=== PATIENT | female | born 1990 | race Caucasian/White ===

== ENCOUNTER 2016-11-24 21:32 | Emergency (ER) | payer OTHER ==
[~2016-11-24] VITALS: Ht 157.5 cm; Wt 75.9 kg
[~2016-11-24 21:32] MED LIST: BIRTH CONTROL PILL; CEPHALEXIN500 M1 PO; NO HOME MEDICATIONS
[2016-11-24 21:34] VITALS: BP 160/96; PULSE 90; TEMP 98.2
[2016-11-24] MEDS ORDERED: FERROUS SULFATE65 MG PO (21:36)
[2016-11-24] MEDS ORDERED: PRENATAL PO (22:10)
== END 2016-11-24 23:00 | disposition other institution (70) ==
LOC: COL.ER 21:32
DX: Z02.89 Encounter for other administrative examinations (principal)

== ENCOUNTER 2016-11-24 21:53 | Outpatient (CLI) | payer OTHER ==
[~2016-11-24] VITALS: Ht 157.5 cm; Wt 76.4 kg
[~2016-11-24 21:53] MED LIST changes: +FERROUS SULFATE65 MG PO
[2016-11-24 22:02] VITALS: BP 134/85; PULSE 100; TEMP 98.3
[2016-11-24] MEDS ORDERED: PRENATAL PO (22:10)
[2016-11-24 22:30] VITALS: BP 142/77; PULSE 78; TEMP 98.3
[2016-11-24 22:53] LABS: BASO % 0.3 % (0.0-2.0); GRAN % 67.7 % (42.2-75.2); LYMPH # 1.8 (1.2-3.4); LYMPH % 23.8 % (20.0-51.0); MEAN CELL VOLUME 85 fl (80.0-100.0); MEAN CORPUSCULAR HGB CONC 34 g/dl (33.0-37.0); MEAN PLATELET VOLUME 11.1 fl (7.4-10.4); MONO # 0.6 (0.1-0.6); MONO % 7.8 % (1.7-9.3); PLATELET COUNT 175 K/mm3 (130-400); RED BLOOD COUNT 3.82 M/mm3 (4.10-5.30); REDCELL DISTRIBUTION WIDTH-CV 12.8 % (11.5-14.5); WHITE BLOOD COUNT 7.4 K/mm3 (4.8-10.8)
[2016-11-24 22:54] LABS: HEMATOCRIT 32.3 % (37.0-47.0); HEMOGLOBIN 11.1 g/dl (12.5-16.0); MEAN CORPUSCULAR HEMOGLOBIN 29 pg (27.0-31.0)
[2016-11-24 22:57] LABS: PH 6 (5-8); SQUAMOUS EPITHELIAL 0-2 /hpf; URINE APPEARANCE Clear; URINE BACTERIA None Seen /hpf; URINE BILIRUBIN Negative (NEGATIVE); URINE BLOOD Negative (NEGATIVE); URINE COLOR Yellow; URINE GLUCOSE Negative (NEGATIVE); URINE KETONE Trace (NEGATIVE); URINE RBC 0-2 /hpf; URINE UROBILINOGEN Negative (NEGATIVE)
[2016-11-24 23:00] VITALS: BP 140/73; BP 146/84; PULSE 79; PULSE 82
[2016-11-24 23:04] LABS: ADJUSTED CALCIUM 8.7 mg/dL (8.4-10.2); BILIRUBIN,TOTAL 0.6 mg/dL (0.0-1.0); CALCIUM 7.9 mg/dL (8.4-10.2); CREATININE, serum 0.6 mg/dL (0.52-1.25); POTASSIUM 3.8 mmol/L (3.4-5.0); TOTAL PROTEIN 6.2 gm/dL (6.4-8.2)
[2016-11-24 23:15] VITALS: BP 146/84; PULSE 82
== END 2016-11-24 23:25 | disposition home or self-care (01) ==
LOC: LDRO 21:53
PROVIDERS: Obstetrics & Gynecology
DX: O12.03 Gestational edema, third trimester (principal); O26.893 Other specified pregnancy related conditions, third trimester; R20.0 Anesthesia of skin; Z87.891 Personal history of nicotine dependence; Z3A.38 38 weeks gestation of pregnancy

== ENCOUNTER 2016-11-26 11:24 | Inpatient (IN) | payer OTHER ==
[~2016-11-26] VITALS: Ht 157.5 cm; Wt 78.6 kg
[~2016-11-26 11:24] MED LIST changes: +PRENATAL PO
[2016-12-06] VITALS (24 sets, daily range): BP systolic 117–185; BP diastolic 76–104; PULSE 62–92; TEMP 97.7–98.8
[2016-12-06] MEDS ORDERED: ZANTAC 150MG T150 MG PO (11:13)
[2016-12-06 11:19] LABS: BASO % 0.3 % (0.0-2.0); EOS % 0.1 % (0-4.0); GRAN # 5.1 (1.4-6.5); GRAN % 72.3 % (42.2-75.2); HEMOGLOBIN 12.2 g/dl (12.5-16.0); LYMPH # 1.5 (1.2-3.4); LYMPH % 20.8 % (20.0-51.0); MEAN CELL VOLUME 83 fl (80.0-100.0); MEAN CORPUSCULAR HEMOGLOBIN 29 pg (27.0-31.0); MEAN CORPUSCULAR HGB CONC 34 g/dl (33.0-37.0); MEAN PLATELET VOLUME 12.2 fl (7.4-10.4); MONO # 0.4 (0.1-0.6); MONO % 5.9 % (1.7-9.3); PLATELET COUNT 166 K/mm3 (130-400); RED BLOOD COUNT 4.28 M/mm3 (4.10-5.30)
[2016-12-06 11:23] LABS: HEMATOCRIT 35.6 % (37.0-47.0)
[2016-12-07 00:55] VITALS: BP 141/78; PULSE 65; TEMP 97.8
[2016-12-07 05:00] VITALS: BP 152/74; PULSE 74; TEMP 97.8
[2016-12-07 06:53] VITALS: BP 154/81; PULSE 82; TEMP 97.9
[2016-12-07 16:00] VITALS: BP 151/86; PULSE 85; TEMP 97.8
[2016-12-07 20:45] VITALS: BP 156/87; PULSE 82; TEMP 98.6
[2016-12-08 08:05] VITALS: BP 142/78; PULSE 82; TEMP 98.2
[2016-12-08] MEDS ORDERED: PERCOCET 325 MG1 TA2 PO (08:28)
[2016-12-08] MEDS ORDERED: IBU800 M1 PO (08:28)
== END 2016-12-08 14:10 | disposition home or self-care (01) | DRG 766 ==
LOC: LDRO 12-06 08:02 → EDSTATUS 12-06 10:29 → OB 12-06 10:31 → LDRO 12-08 11:23 → OB 12-08 14:10
PROVIDERS: Obstetrics & Gynecology
PROC: 10D00Z1 Extraction of Products of Conception, Low, Open Approach (ICD-10-PCS; principal; 2016-12-06)
DX: O14.03 Mild to moderate pre-eclampsia, third trimester (principal); O69.81X0 Labor and delivery complicated by cord around neck, without compression, not applicable or unspecified; Z3A.39 39 weeks gestation of pregnancy; Z37.0 Single live birth
CPT/HCPCS: J0690; J1885; J2175; J2270; J2370; J2405; J2590; J7120

== ENCOUNTER 2019-10-12 05:34 | Inpatient (IN) | payer BC ==
[~2019-10-12] VITALS: Ht 157.5 cm; Wt 70.9 kg
[2019-10-12] VITALS (20 sets, daily range): BP systolic 110–145; BP diastolic 51–90; PULSE 64–107; TEMP 97.5–98.5
[~2019-10-12 05:34] MED LIST changes: +IBU800 M1 PO; +PERCOCET 325 MG1 TA2 PO; +ZANTAC 150MG T150 MG PO
[2019-10-12] MEDS ORDERED: TYLENOL 325MG325 MG PO (06:31)
--- NOTE | 2019-10-12 06:38 | NUR ---
Report received from Ger Ho RN. Pt resting comfortably in bed, plan of care discussed and agreed. LR running via IV in left forearm. Assessment done. Questions invited and answered.
[2019-10-12 06:43] LABS: BASO % 0.1 % (0.0-2.0); EOS % 0.4 % (0-4.0); GRAN # 5.2 (1.4-6.5); GRAN % 66.2 % (42.2-75.2); HEMOGLOBIN 10.6 g/dl (12.5-16.0); LYMPH % 25.3 % (20.0-51.0); MEAN CELL VOLUME 86 fl (80.0-100.0); MEAN CORPUSCULAR HEMOGLOBIN 28 pg (27.0-31.0); MEAN CORPUSCULAR HGB CONC 33 g/dl (33.0-37.0); MEAN PLATELET VOLUME 11.5 fl (7.4-10.4); MONO # 0.6 (0.1-0.6); MONO % 7.4 % (1.7-9.3); PLATELET COUNT 175 K/mm3 (130-400); RED BLOOD COUNT 3.77 M/mm3 (4.10-5.30); REDCELL DISTRIBUTION WIDTH-CV 12.7 % (11.5-14.5)
[2019-10-12 06:46] LABS: HEMATOCRIT 32.3 % (37.0-47.0)
[2019-10-12] MEDS ORDERED: MOTRIN 800800 MG/TAB PO (08:23)
[2019-10-12] MEDS ORDERED: PERCOCET 325 MG1 TA2 PO (08:23)
--- NOTE | 2019-10-12 09:14 | NUR ---
Initial visit; Parents thanked [employer] for offering congratulations and God's blessings to their family for the of their baby girl. [employer] thanked family for choosing [facility].
[2019-10-13] VITALS: BP 139/81; PULSE 80; TEMP 98.1
[2019-10-13 04:10] VITALS: BP 144/81; PULSE 100; TEMP 98.6
[2019-10-13 07:35] VITALS: BP 132/87; PULSE 93; TEMP 98.8
--- NOTE | 2019-10-13 12:29 | NUR ---
Nurse Staff [facility] offered congrats with patient and visited briefly.
[2019-10-13 17:05] VITALS: BP 130/76; PULSE 78; TEMP 98.4
[2019-10-13 20:00] VITALS: BP 136/84; PULSE 79; TEMP 98.1
[2019-10-14 08:30] VITALS: BP 122/77; PULSE 92; TEMP 98.6
== END 2019-10-14 12:35 | disposition home or self-care (01) | DRG 788 ==
LOC: OB 05:34 → LDR 07:25 → OB 14:20
PROVIDERS: ADMIT Obstetrics & Gynecology
PROC: 10D00Z1 Extraction of Products of Conception, Low, Open Approach (ICD-10-PCS; principal; 2019-10-12)
DX: O34.211 Maternal care for low transverse scar from previous cesarean delivery (principal); Z37.0 Single live birth; Z3A.39 39 weeks gestation of pregnancy; O32.1XX0 Maternal care for breech presentation, not applicable or unspecified; Z87.891 Personal history of nicotine dependence; Z23 Encounter for immunization
CPT/HCPCS: J0690; J1885; J2175; J2270; J2370; J2405; J2590; J2765; J7120

== ENCOUNTER → 2024-09-04 | Outpatient (CLI) | payer BC ==
[~2024-09-04] MED LIST changes: +MOTRIN 800800 MG/TAB PO; +TYLENOL 325MG325 MG PO
== END ==
LOC: COL.RAD 12:17
DX: R07.9 Chest pain, unspecified (principal)